=== PATIENT | female | born 1995 | race Caucasian/White ===

== ENCOUNTER 2025-08-05 11:10 | Emergency (ER) | payer SELFPAY ==
[~2025-08-05] VITALS: Ht 157.4 cm; Wt 97.5 kg
[~2025-08-05 11:10] MED LIST: BACTRIM DS 8001 TA1 PO; BENZONATATE200 MG PO; CHERATUSSIN AC480 ML PO; DUONEB 3 MG/3 ML3 M1 INH; KEFLEX500 MG PO; LEVAQUIN750 M1 PO; LOESTRIN 21 1.51 TAB PO; MOTRIN800 MG PO; Motrin,Rufen800 MG PO; PROVENTIL0.09 MG/A1 INH; ZOFRAN4 MG PO
== END 2025-08-05 14:12 | disposition home or self-care (01) ==
LOC: ED 11:10
DX: O99.612 Diseases of the digestive system complicating pregnancy, second trimester (principal); K59.00 Constipation, unspecified; Z3A.14 14 weeks gestation of pregnancy